=== PATIENT | female | born 1990 | race Caucasian/White ===

== ENCOUNTER 2019-11-05 04:12 | Emergency (ER) | payer MEDICAID ==
[~2019-11-05] VITALS: Ht 152.4 cm; Wt 40.8 kg
[2019-11-05] MEDS ORDERED: LORazepam 2MG/ML-1ML VIAL IV ONE ×2 (04:30→10:45)
[2019-11-05 05:43] LABS: Basophils # (auto) 0 10 ^3/uL (0-0.2); Basophils % (auto) 0.7 % (0.0-2.0); Eosinophils # (auto) 0.1 10 ^3/uL (0-0.8); Eosinophils % (auto) 1.2 % (0.0-7.0); Hematocrit 44.3 % (36.0-46.0); Hemoglobin 15.2 g/dL (12.2-16.2); Lymphocytes # (auto) 1.5 10 ^3/uL (0.4-5.4); Lymphocytes % (auto) 24.3 % (10.0-50.0); Mean Corpuscular Hemoglobin 28.6 pg (28.0-32.0); Mean Corpuscular Hgb Conc. 34.3 g/dL (32.0-36.0); Mean Corpuscular Volume 83.3 fL (80.0-100.0); Monocytes # (auto) 0.4 10 ^3/uL (0-1.3); Monocytes % (auto) 6.6 % (0.0-12.0); Neutrophils # (auto) 4.1 10 ^3/uL (1.6-8.6); Neutrophils % (auto) 67.2 % (37.0-80.0); Nucleated Red Blood Cells % 0.1 %; Platelet Count (auto) 209 10^3/uL (140-450); Red Blood Cells 5.32 10^6/uL (4.0-5.20); Red Cell Distribution Width 13.2 % (11.8-14.3); White Blood Cell 6.2 10^3/uL (4.4-10.8)
[2019-11-05 06:04] LABS: Acetaminophen < 2.0 ug/mL (10-30); Salicylate 2.3 mg/dL (2.8-20.0)
[2019-11-05 06:10] LABS: Albumin 3.9 g/dL (3.4-5.0); Anion Gap 5 (5-15); Blood Alcohol < 3.0 mg/dL (0-5); Blood Urea Nitrogen 19 mg/dL (7-18); Calcium 8.6 mg/dL (8.5-10.1); Carbon Dioxide 26 mmol/L (21-32); Chloride 108 mmol/L (98-107); Glucose 115 mg/dL (74-106); Potassium 3.3 mmol/L (3.5-5.1); Sodium 139 mmol/L (136-145)
[2019-11-05 06:14] LABS: Alanine Aminotransferase 58 U/L (13-56); Alkaline Phosphatase 80 U/L (45-117); Aspartate Aminotransferase 29 U/L (15-37); Bilirubin, Total 0.3 mg/dL (0.2-1.0); GFR African American 69 mL/min; GFR Non-African American 57 mL/min; Total Protein 7.1 g/dL (6.4-8.2)
[2019-11-05] MEDS ORDERED: POTASSIUM EFFERVESENT TAB 25 MEQ PO ONE (07:00)
[2019-11-05] MEDS ORDERED: LORazepam 2MG/ML-1ML VIAL ONE (10:38)
[2019-11-05] MEDS ORDERED: OLANZapine 5 MG TAB PO ONE (12:15)
[2019-11-05 18:59] LABS: Urine Amorphous Crystal FEW /hpf (None Seen); Urine Bacteria NONE SEEN /hpf (None Seen); Urine Blood Negative /uL (Negative); Urine Mucus FEW (None Seen); Urine Specific Gravity 1.029 (1.001-1.035); Urine WBC 44 /hpf (0 - 5)
[2019-11-05 19:17] LABS: Alcohol, Urine < 3.0 mg/dL (0-10); Amphetamine Screen, Urine POSITIVE (NEGATIVE); Barbiturate Scree,Urine NEGATIVE (NEGATIVE); Benzodiazephine Screen, Urine NEGATIVE (NEGATIVE); Cannabinoid Screen, Urine NEGATIVE (NEGATIVE); Cocaine Screen, Urine NEGATIVE (NEGATIVE); Opiate Scree,Urine NEGATIVE (NEGATIVE)
[2019-11-05 19:25] LABS: Phencyclidine Screen, Urine NEGATIVE (NEGATIVE)
[2019-11-05] MEDS: OLANZapine 5 MG TAB PO SCH (21:10)
[2019-11-05] MEDS: LORazepam 0.5 MG TAB PO SCH (21:11)
[2019-11-06] MEDS: LORazepam 0.5 MG TAB PO SCH ×2 (10:21→22:44)
[2019-11-06] MEDS: OLANZapine 5 MG TAB PO SCH ×2 (10:21→22:44)
[2019-11-06] MEDS: NITROFURANTOIN 100 mg CAP PO SCH ×2 (11:35→22:44)
[2019-11-07] MEDS: LORazepam 0.5 MG TAB PO SCH ×2 (11:23→22:00)
[2019-11-07] MEDS: OLANZapine 5 MG TAB PO SCH ×2 (11:24→22:00)
[2019-11-07] MEDS: NITROFURANTOIN 100 mg CAP PO SCH ×2 (11:24→22:00)
[2019-11-08] MEDS: LORazepam 0.5 MG TAB PO SCH ×2 (12:30→22:00)
[2019-11-08] MEDS: NITROFURANTOIN 100 mg CAP PO SCH ×2 (12:30→22:00)
[2019-11-08] MEDS: OLANZapine 5 MG TAB PO SCH ×2 (12:30→22:00)
[2019-11-08] MEDS ORDERED: diphenhdrAMINE HCL 25 MG CAP PO ONE (19:45)
[2019-11-08] MEDS ORDERED: HALOPERIDOL 5 MG TAB PO ONE (19:45)
[2019-11-09] MEDS: LORazepam 0.5 MG TAB PO SCH ×3 (10:46→20:57)
[2019-11-09] MEDS: OLANZapine 5 MG TAB PO SCH ×3 (10:46→20:57)
[2019-11-09] MEDS: NITROFURANTOIN 100 mg CAP PO SCH ×3 (10:46→20:57)
[2019-11-10 16:00] VITALS: BP 128/74
== END 2019-11-10 17:29 | disposition home or self-care (01) ==
LOC: ER 04:16
DX: F15.159 Other stimulant abuse with stimulant-induced psychotic disorder, unspecified (principal); F15.10 Other stimulant abuse, uncomplicated; E87.6 Hypokalemia; F20.9 Schizophrenia, unspecified; Z59.0 Homelessness; Z20.828 Contact with and (suspected) exposure to other viral communicable diseases
CPT/HCPCS: 36415; 80053; 80307; 80320; 80329; 81001; 81025; 85025; 96374; 96376; 99285; J2060; U0003